=== PATIENT | female | born 1980 ===

== ENCOUNTER 2022-12-16 12:54 | Emergency (ER) | payer BC, OTHER, MEDICAID, SELFPAY ==
[2022-12-16 13:14] VITALS: BP 200/116; PULSE 112; RESP 18; TEMP 36.6; O2SAT 100
--- NOTE | 2022-12-16 13:58 | PC.NURSE ---
Patient called to place into exam room without answer. Patient was seen exiting the ER approx. 10 minutes before but she did not notify ER staff [place] that she was leaving.
--- NOTE | 2022-12-16 16:25 | PC.NURSE ---
pt left d/t wait time
== END 2022-12-16 14:30 | disposition left against medical advice (07) ==
LOC: ANHED 16:55
DX: S89.91XA Unspecified injury of right lower leg, initial encounter (principal); I10 Essential (primary) hypertension
CPT/HCPCS: 99199